=== PATIENT | male | born 1965 | race American Indian/Alaskan Native ===

== ENCOUNTER 2017-04-02 07:35 | Day surgery (SDC) | payer BC ==
--- NOTE | 2017-04-02 10:21 | Short Stay Summary ---
Short Stay Documentation Date of service: 04/02/17 - History Principal diagnosis: thyroid nodules H&P: obtained from office - Allergies and Medications Current Medications: Allergies No Known Allergies Allergy (Verified 04/02/17 08:25) Home Medications Medication Instructions Recorded Confirmed Last Taken Type Naproxen Sodium [Aleve] 440 mg PO PRN PRN 04/02/17 04/02/17 04/01/17 History - Physical exam General appearance: no acute distress HEENT: Other (prominent thryroid with midline nodule) - Brief post op/procedure progress note Date of procedure: 04/02/17 Pre-op diagnosis: thyroid nodule Post-op diagnosis: same Procedure: US thyroid biopsy Anesthesia: local Findings: 4cm thyroid isthmus nodule Estimated blood loss: none Pathology: list (FNA, rotex biopsy) Specimen disposition: to lab Condition: stable - Disposition Condition at discharge: Good Disposition: DC-01 TO HOME OR SELFCARE Short Stay Discharge Plan Follow up with: CHAYO BENDER MD [Primary Care Provider] - 7 Days
[2017-04-02 10:32] VITALS: BP 129/87
--- NOTE | 2017-04-02 11:09 | Ultrasound Report ---
ULTRASOUND BIOPSY THYROID HISTORY: Thyroid/neck mass. DESCRIPTION OF PROCEDURE: Initial scan of the thyroid gland demonstrates multiple bilateral nodules which are similar in appearance. The dominant nodule measuring 4.0 x 2.8 x 3.9 cm was selected for fine needle aspiration and biopsy. Informed consent was obtained. Sterile technique was utilized. 1% lidocaine for skin anesthesia. Using ultrasound guidance, fine needle aspiration and Rotex biopsy was performed. Samples were obtained adequate by the pathologist on site. No complications. IMPRESSION: Successful ultrasound guided biopsy the dominant isthmus nodule as described.
== END 2017-04-02 10:40 | disposition home or self-care (01) ==
LOC: CATHLABREC 07:35
PROVIDERS: ATTEND Otolaryngology
DX: E04.2 Nontoxic multinodular goiter (principal); F17.210 Nicotine dependence, cigarettes, uncomplicated
CPT/HCPCS: 60100; 76942; 88112; 88172; 88173; 88305